=== PATIENT | male | born 1995 | race Caucasian/White ===

== ENCOUNTER 2020-03-16 21:01 | Emergency (ER) | payer BC ==
[~2020-03-16] VITALS: Ht 182.9 cm; Wt 108.9 kg
[2020-03-16 21:54] LABS: ABSOLUTE EOSINOPHILS 0.1 thou/uL (0.0-0.7); ABSOLUTE LYMPHOCYTES 1.8 thou/uL (0.8-5.3); ABSOLUTE MONOCYTES 0.7 thou/uL (0.0-1.2); BASOPHILS 0.6 %; EOSINOPHILS 1.4 %; HEMATOCRIT 45.3 % (42.0-52.0); HEMOGLOBIN 15.6 gm/dL (14.0-18.0); LYMPHOCYTES 26.9 %; MCH 30.6 pg (26.0-34.0); MCHC 34.5 g/dL (28.0-37.0); MCV 88.5 fL (80.0-100.0); MONOCYTES 10.7 %; MPV 8.8 fl. (7.2-11.1); NUCLEATED RBCS 0 /100WBC; PLATELET COUNT* 181 thou/uL (150-400); POLYS 60.4 %; RBC 5.11 mil/uL (4.50-6.00); RDW-CV 12.7 % (10.5-14.5); WBC 6.5 thou/uL (4.0-11.0)
[2020-03-16 22:01] LABS: CALCIUM 8.1 mg/dL (8.5-10.1); CREATININE 1.1 mg/dL (0.6-1.3)
[2020-03-16] MEDS ORDERED: LORCET 5-325 M1 EACH PO (23:33)
[2020-03-16] MEDS ORDERED: CLEOCIN HCL300 MG PO (23:33)
[2020-03-17 01:10] VITALS: BP 112/69
== END 2020-03-17 01:10 | disposition home or self-care (01) ==
LOC: M.ERS 21:01
PROVIDERS: Emergency Medicine
DX: L03.116 Cellulitis of left lower limb (principal)

== ENCOUNTER 2020-07-19 22:15 | Emergency (ER) | payer BC ==
[~2020-07-19] VITALS: Ht 182.9 cm; Wt 104.3 kg
[~2020-07-19 22:15] MED LIST: CLEOCIN HCL300 MG PO; LORCET 5-325 M1 EACH PO
[2020-07-19 23:00] LABS: INFLUENZA A ANTIGEN Negative (Negative); INFLUENZA B ANTIGEN Negative (Negative)
[2020-07-19 23:49] VITALS: BP 146/101
== END 2020-07-19 23:49 | disposition home or self-care (01) ==
LOC: M.ERS 22:15
PROVIDERS: Personal Emergency Response Attendant
DX: B34.9 Viral infection, unspecified (principal); Z20.828 Contact with and (suspected) exposure to other viral communicable diseases; R53.1 Weakness; R42 Dizziness and giddiness

== ENCOUNTER → 2020-10-23 | Outpatient (CLI) | payer BC ==
--- NOTE | 2020-10-23 15:57 | EKG ---
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
== END ==
LOC: M.RAD 13:24
PROVIDERS: ATTEND Family Medicine
DX: R07.89 Other chest pain (principal)

== ENCOUNTER → 2020-10-24 | Outpatient (CLI) | payer BC ==
[2020-10-24 13:28] LABS: ABSOLUTE LYMPHOCYTES 1.6 thou/uL (0.8-5.3); ABSOLUTE MONOCYTES 0.3 thou/uL (0.0-1.2); ABSOLUTE NEUTROPHILS 2.4 thou/uL (1.6-8.1); BASOPHILS 0.7 %; EOSINOPHILS 0.8 %; HEMATOCRIT 47.6 % (42.0-52.0); HEMOGLOBIN 16.4 gm/dL (14.0-18.0); MCH 30.2 pg (26.0-34.0); MCHC 34.5 g/dL (28.0-37.0); MCV 87.5 fL (80.0-100.0); MONOCYTES 7.7 %; MPV 8.1 fl. (7.2-11.1); NUCLEATED RBCS 0 /100WBC; PLATELET COUNT* 191 thou/uL (150-400); POLYS 54.8 %; RBC 5.43 mil/uL (4.50-6.00); RDW-CV 12.5 % (10.5-14.5); WBC 4.4 thou/uL (4.0-11.0)
[2020-10-24 13:46] LABS: ALBUMIN 4.3 g/dL (3.4-5.0); ALKALINE PHOSPHATASE 64 U/L (46-116); ANION GAP 7 mmol/L (7-16); BUN 11 mg/dL (7-18); CALCIUM 8.7 mg/dL (8.5-10.1); CHLORIDE 103 mmol/L (98-107); CHOLESTEROL 159 mg/dL (<200); CO2 29 mmol/L (21-32); CREATININE 1.1 mg/dL (0.6-1.3); GLUCOSE 85 mg/dL (70-99); HDL CHOLESTEROL 45 mg/dL (>40); LDL CHOLESTEROL 104 mg/dL (<100); POTASSIUM 4.2 mmol/L (3.5-5.1); SERUM ASSESSMENT CLEAR; SGOT 16 U/L (15-37); SGPT 40 U/L (30-65); SODIUM 139 mmol/L (136-145); TC:HDL 3.5 Ratio (Not establshd); TOTAL BILIRUBIN 0.9 mg/dL (<0.1-1.0); TOTAL PROTEIN 7.1 g/dL (6.4-8.2); TRIGLYCERIDE 50 mg/dL (<150); VLDL 10 mg/dL (<40)
[2020-10-25 02:06] LABS: GLYCOHEMOGLOBIN (HGB A1C) 5.1 % (4.8-5.6)
== END ==
LOC: M.LAB 13:01
PROVIDERS: ATTEND Family Medicine
DX: I10 Essential (primary) hypertension (principal); Z00.00 Encounter for general adult medical examination without abnormal findings; R07.89 Other chest pain; R53.83 Other fatigue; R73.09 Other abnormal glucose

== ENCOUNTER → 2020-11-26 | Outpatient (CLI) | payer BC ==
--- NOTE | 2020-11-26 15:17 | 2DMMODE ---
[place] [address] 2 D/M-MODE ECHOCARDIOGRAM Name: CLARK COUGHLIN Room: [facility]#: [id number] Admission: 11/26/20 Attend Phys: Jose Miguel Patel DO Discharge: Date of : [birth year] Date of Service: 11/26/20 1517 Report #: [id number] THIS REPORT FOR: cc: Jose Miguel Patel Adam J DO Liston, Michael J. MD [facility] ~ APPROVED REPORT Study performed: 11/26/2020 12:58:40 EXAM: Comprehensive 2D, Doppler, and color-flow Echocardiogram Patient Location: Out-Patient BSA: 2.28 HR: 78 bpm Other Information Study Quality: Good Indications Dyspnea Chest Pain 2D Dimensions IVSd: 11.68 (7-11mm) LVOT Diam: 20.28 (18-24mm) LVDd: 41.43 mm PWd: 10.39 (7-11mm) Ascending Ao: 26.12 (22-36mm) LVDs: 22.70 (25-40mm) Aortic Root: 27.79 mm Volumes Left Atrial Volume (Systole) LA ESV Index: 13.20 mL/m2 Aortic Valve AoV Peak Jaylan.: 1.16 m/s AO Peak Gr.: 5.39 mmHg LVOT Max P.30 mmHg AO Mean Gr.: 2.94 mmHg LVOT Mean P.07 mmHg LVOT Max V: 1.04 m/s AO V2 VTI: 20.67 cm LVOT Mean V: 0.66 m/s LYNN (VTI): 3.19 cm2 LVOT V1 VTI: 20.43 [place] [address] 2 D/M-MODE ECHOCARDIOGRAM Name: CLARK COUGHLIN Room: [facility]#: [id number] Admission: 11/26/20 Attend Phys: Jose Miguel Patel DO Discharge: Date of : [birth year] Date of Service: 11/26/20 1517 Report #: [id number] E/A Ratio: 2.00 MV Decel. Time: 163.68 ms MV E Max Jaylan.: 0.87 m/s MV PHT: 47.47 ms MVA (PHT): 4.63 cm2 TDI E/Lateral E': 4.58 E/Medial E': 6.21 Medial E' Jaylan.: 0.14 m/s Lateral E' Jayaln.: 0.19 m/s Pulmonary Valve PV Peak Jaylan.: 1.00 m/s PV Peak Gr.: 4.02 mmHg Left Ventricle The left ventricle is normal size. There is normal LV segmental wall motion. There is normal left ventricular wall thickness. Left ventricular systolic function is normal. LVEF is 55-60%. The left ventricular diastolic function is normal. Right Ventricle The right ventricle is normal size. The right ventricular systolic function is normal. Atria The left atrium size is normal. The right atrium size is normal. Aortic Valve The aortic valve is normal in structure. No aortic regurgitation is present. There is no aortic valvular stenosis. Mitral Valve The mitral valve is normal in structure. There is no mitral valve regurgitation noted. No evidence of mitral valve stenosis. Tricuspid Valve The tricuspid valve is normal in structure. There is no tricuspid valve regurgitation noted. Pulmonic Valve The pulmonary valve is normal in structure. There is no pulmonic valvular regurgitation. Great Vessels The aortic root is normal in size. IVC [place] [address] 2 D/M-MODE ECHOCARDIOGRAM Name: CLARK COUGHLIN Room: [facility]#: [id number] Admission: 11/26/20 Attend Phys: Jose Miguel Patel DO Discharge: Date of : [birth year] Date of Service: 11/26/20 1517 Report #: [id number] collapses >50% with inspiration. Pericardium There is no pericardial effusion. <Conclusion> The left ventricle is normal size. There is normal left ventricular wall thickness. Left ventricular systolic function is normal. LVEF is 55-60%. The left ventricular diastolic function is normal. IVC is normal in size and collapses >50% with inspiration. <ELECTRONICALLY SIGNED> By: Breezy Gagnon MD, FACC 11/26/20 151 16 16 Breezy Gagnon MD, FACC /INF
== END ==
LOC: M.CRD 13:00
PROVIDERS: ATTEND Family Medicine
DX: R06.00 Dyspnea, unspecified (principal); R07.89 Other chest pain; R25.1 Tremor, unspecified; R06.02 Shortness of breath

== ENCOUNTER → 2021-08-27 | Outpatient (CLI) | payer BC | LOC: M.ULTRA 07:30 | PROVIDERS: ATTEND Family Medicine | DX: R16.1 Splenomegaly, not elsewhere classified (principal); R79.89 Other specified abnormal findings of blood chemistry ==